=== PATIENT | male | born 1990 | race Caucasian/White ===

== ENCOUNTER → 2016-08-06 | Outpatient (REF) | payer OTHER | LOC: M LAB REF 15:20 | PROVIDERS: ATTEND Physician Assistant | DX: J02.9 Acute pharyngitis, unspecified (principal) ==

== ENCOUNTER → 2020-10-14 | Outpatient (CLI) | payer OTHER ==
[~2020-10-14] MED LIST: AMIT25TA17 PO; IBUP-1022 PO; SUMA100T2 PO; SUMA4INJ3 SQ; TOPI50TA9 PO; VITMTA PO
== END ==
LOC: M LABSMTC 09:36
PROVIDERS: ATTEND Anesthesiology
DX: Z01.818 Encounter for other preprocedural examination (principal); Z20.822 Contact with and (suspected) exposure to COVID-19

== ENCOUNTER 2020-10-19 06:15 | Day surgery (SDC) | payer OTHER ==
[~2020-10-19] VITALS: Ht 193 cm; Wt 70.2 kg
[~2020-10-19 06:15] MED LIST changes: +LIDOCAINE 1% MDV 20ML VIAL SQ PRN; +LR 1,000 ML IV ONE; +ceFAZolin SOD 1 GM in D5W MINI-BAG PLUS 50 ML IV ONE
[2020-10-19] MEDS ORDERED: BUPIVACAINE/EPIN 0.25% 30 ML VIAL As Ordered ONE (07:13)
[2020-10-19] MEDS ORDERED: ACETAMINOPHEN 1000MG 100ML IV BTL (OFIRMEV) (J0131 PER 10MG) As Ordered ONE (07:16)
[2020-10-19] MEDS ORDERED: propofoL 200 MG/20 ML VIAL As Ordered ONE ×2 (07:16→07:57)
[2020-10-19] MEDS ORDERED: LIDOCAINE 2% 100MG/5ML SDV (FOR ANES.) As Ordered ONE (07:16)
[2020-10-19] MEDS ORDERED: ONDANSETRON 4MG/2ML VIAL As Ordered ONE (07:16)
[2020-10-19] MEDS ORDERED: dexameTHASONE 4 MG/ML 1ML VIAL (J1100 PER 1MG) As Ordered ONE (07:16)
[2020-10-19] MEDS ORDERED: fentaNYL 100 MCG/2 ML INJECTION (J3010) As Ordered ONE (07:17)
[2020-10-19] MEDS ORDERED: MIDAZOLAM INJ 2MG/2ML VIAL (J2250 PER 1MG) As Ordered ONE (07:17)
[2020-10-19] MEDS ORDERED: ROCURONIUM BROMIDE 50 MG/5 ML VIAL As Ordered ONE (07:20)
[2020-10-19] MEDS ORDERED: PHENYLephrine 500MCG 5ML (100MCG/ML) SYRINGE As Ordered ONE (07:57)
[2020-10-19] MEDS ORDERED: LR 1,000 ML IV SCH (08:40)
[2020-10-19] MEDS ORDERED: fentaNYL 100 MCG/2 ML INJECTION (J3010) IV PRN (08:40)
[2020-10-19] MEDS ORDERED: ONDANSETRON 4MG/2ML VIAL IV PRN (08:40)
[2020-10-19] MEDS ORDERED: NS 1,000 ML IV SCH (08:40)
[2020-10-19] MEDS ORDERED: oxyCODONE 5MG TAB PO PRN (08:40)
[2020-10-19 08:45] VITALS: BP 108/57
[2020-10-19] MEDS ORDERED: KETOROLAC 30 MG/ML 1ML VIAL IV SCH (09:00)
--- NOTE | 2020-10-19 09:06 | RO ---
OPERATIVE NOTE DATE OF OPERATION: 10/19/2020 PREOPERATIVE DIAGNOSIS: Right posterior thigh lipoma. POSTOPERATIVE DIAGNOSIS: Right posterior thigh lipoma (5 cm x 8 cm). PROCEDURE: Excision of multilobulated right posterior thigh lipoma. SURGEON: Liu Oliva Jr, MD IMPLEMENTATION ARCHITECT: ANESTHESIA: Local with sedation. EBL: Minimal. FLUIDS: Crystalloid. DESCRIPTION OF PROCEDURE: The patient was brought to the operating room, was given IV sedation, was prepped and draped in usual sterile fashion. A longitudinal incision over the lipoma was made with skin knife after local anesthetic was injected. Combination of blunt and sharp dissection was used to remove the lipoma itself. It was a multilobulated lipoma and thus there were multiple fingers of this going out to the sides that needed to be removed piecemeal but eventually all of these were cleared of lipomatous debris. The dermis was brought together with 2-0 Vicryl, 3-0 Vicryl and 4-0 Vicryl subcuticular was used to approximate the skin. Steri-Strips and dry, sterile dressing was applied. The patient was awakened from his sedation, brought to the recovery room awake, alert and hemodynamically stable. Sponge and needle counts correct x2.
== END 2020-10-19 10:06 | disposition home or self-care (01) ==
LOC: M SDC 06:15
PROVIDERS: ATTEND Surgery
DX: D17.23 Benign lipomatous neoplasm of skin and subcutaneous tissue of right leg (principal); G43.909 Migraine, unspecified, not intractable, without status migrainosus; R06.83 Snoring; Z79.899 Other long term (current) drug therapy
CPT/HCPCS: 27337; 88304; J0131; J0690; J1885; J2250; J2370; J2405; J3010

== ENCOUNTER → 2022-01-20 | Outpatient (CLI) | payer OTHER ==
[~2022-01-20] MED LIST changes: -LIDOCAINE 1% MDV 20ML VIAL SQ PRN; -LR 1,000 ML IV ONE; -SUMA4INJ3 SQ; +SUMA4INJ6 SQ; -ceFAZolin SOD 1 GM in D5W MINI-BAG PLUS 50 ML IV ONE
[2022-01-20 07:01] LABS: BASO % 0.8 % (0.0-1.0); EOS # 0.2 10^3/uL (0.0-0.5); EOS % 2.9 % (0.0-3.0); HEMATOCRIT 43.2 % (42.0-52.0); HEMOGLOBIN 15.4 g/dl (13.5-17.5); LYMPH # 1.7 10^3/uL (1.5-5.0); LYMPH % 32.1 % (24.0-44.0); MEAN CORPUSCULAR HGB CONC 35.6 g/dl (32.0-36.5); MEAN CORPUSCULAR VOLUME 89.6 fl (80.0-96.0); MONO # 0.6 10^3/uL (0.0-0.8); MONO % 11.4 % (2.0-8.0); NEUTROPHILS # 2.8 10^3/uL (1.5-8.5); NEUTROPHILS % 52.4 % (36.0-66.0); PLATELET COUNT, AUTOMATED 236 10^3/uL (150-450); RED BLOOD COUNT 4.82 10^6/uL (4.30-6.10); WHITE BLOOD COUNT 5.3 10^3/uL (4.0-10.0)
[2022-01-20 07:37] LABS: ALT/SGPT 38 U/L (12-78); BLOOD UREA NITROGEN 19 MG/DL (7-18); CALCIUM LEVEL 8.8 MG/DL (8.5-10.1); CARBON DIOXIDE LEVEL 28 MEQ/L (21-32); CHLORIDE LEVEL 108 MEQ/L (98-107); CREATININE FOR GFR 1.23 MG/DL (0.70-1.30); GLOMERULAR FILTRATION RATE > 60.0 (>60); GLUCOSE, FASTING 89 MG/DL (70-100); POTASSIUM SERUM 3.9 MEQ/L (3.5-5.1); SODIUM LEVEL 139 MEQ/L (136-145)
[2022-01-20 07:38] LABS: ALBUMIN 4.2 GM/DL (3.2-5.2); BILIRUBIN,TOTAL 0.8 MG/DL (0.2-1.0); CHOLESTEROL LEVEL 171 MG/DL (<200); CHOLESTEROL RISK RATIO 3.976 (<5); FREE T4 0.99 NG/DL (0.76-1.46); HDL CHOLESTEROL 43 MG/DL (>40); LDL CHOLESTEROL 105 MG/DL (<100); NON-HDL-C 128 MG/DL; THYROID STIMULATING HORMONE 0.843 uIU/ML (0.358-3.740); TOTAL PROTEIN 7.3 GM/DL (6.4-8.2); TRIGLYCERIDES LEVEL 113 MG/DL (<150)
[2022-01-20 10:05] LABS: TOTAL 25(OH) VITAMIN D 32.3 NG/ML (30.0-100.0)
== END ==
LOC: M LAB 06:10
PROVIDERS: ATTEND Family Medicine
DX: Z13.220 Encounter for screening for lipoid disorders (principal); Z13.228 Encounter for screening for other metabolic disorders

== ENCOUNTER → 2023-02-14 | Outpatient (CLI) | payer OTHER ==
[~2023-02-14] MED LIST changes: -AMIT25TA17 PO; +AMIT25TA19 PO; +PROHANCE 279.3MG/ML 15ML VIAL ONE; +TOPI-254 PO; -TOPI50TA9 PO
== END ==
LOC: M PLAIMG 09:27
PROVIDERS: ATTEND Otolaryngology
DX: H90.42 Sensorineural hearing loss, unilateral, left ear, with unrestricted hearing on the contralateral side (principal)
CPT/HCPCS: 70553; A9576

== ENCOUNTER → 2024-10-24 | Outpatient (CLI) | payer OTHER ==
[~2024-10-24] MED LIST changes: -PROHANCE 279.3MG/ML 15ML VIAL ONE; -SUMA4INJ6 SQ; +SUMA4PEN SQ; +TOPI-21 PO; -TOPI-254 PO
== END ==
LOC: M WUC 14:13
PROVIDERS: ATTEND Nurse Practitioner Adult Health
DX: M51.34 Other intervertebral disc degeneration, thoracic region (principal); M50.30 Other cervical disc degeneration, unspecified cervical region

== ENCOUNTER → 2024-11-14 | Outpatient (CLI) | payer OTHER | LOC: M RAD 13:07 | PROVIDERS: ATTEND Nurse Practitioner Adult Health | DX: M51.24 Other intervertebral disc displacement, thoracic region (principal) ==